=== PATIENT | female | born 1930 | race African-American/Black ===

== ENCOUNTER 2020-07-02 13:08 | Inpatient (IN) | payer MEDICARE ==
[2020-07-02] MEDS ORDERED: hydrALAZINE 20 MG/ML VIAL SLOW IVP PRN (14:06)
[2020-07-02] MEDS ORDERED: Dextrose 5% in Water 1,000 ML IV PRN (14:06)
[2020-07-02] MEDS ORDERED: Morphine 2 MG/ML VIAL SLOW IVP PRN (14:06)
[2020-07-02] MEDS ORDERED: Ondansetron PF 4 MG/2 ML Vial IVP PRN (14:06)
[2020-07-02] MEDS ORDERED: Dextrose 50% Abboject 50 ML SYRINGE SLOW IVP PRN (14:06)
[2020-07-02] MEDS ORDERED: Ondansetron ODT 4 MG TAB PO PRN (14:06)
[2020-07-02] MEDS ORDERED: traMADol HCl 50 MG TAB PO PRN (14:13)
[2020-07-02] MEDS ORDERED: Cepastat Lozenges 1 LOZ PO PRN (14:13)
[2020-07-02] MEDS ORDERED: hydrALAZINE 20 MG/ML VIAL ONE (14:40)
[2020-07-02] MEDS ORDERED: CEFAZOLIN 2 GM in Premix Bag 1 BAG IVPB SCH (15:00)
[2020-07-02 15:50] LABS: SARS-CoV-2 NAA Rapid Test Not Detected (NotDetected)
[2020-07-02] MEDS ORDERED: Lidocaine 1% PF 5 ML VIAL ONE (16:52)
[2020-07-02] MEDS ORDERED: PROPOFOL 200 MG/20 ML VIAL ONE (16:52)
[2020-07-02] MEDS ORDERED: Ondansetron PF 4 MG/2 ML Vial ONE (16:52)
[2020-07-02] MEDS ORDERED: Dexamethasone 20 MG/5 ML VIAL ONE (16:52)
[2020-07-02] MEDS ORDERED: Promethazine HCl 25 MG/ML VIAL SLOW IVP PRN (17:58)
[2020-07-02] MEDS ORDERED: Promethazine HCl 25 MG/ML VIAL IM PRN (17:58)
[2020-07-02] MEDS ORDERED: Ondansetron HCl/PF 4 MG/2 ML Vial IVP PRN (17:58)
[2020-07-02] MEDS ORDERED: Fentanyl 100 MCG/2 ML VIAL ONE ×2 (18:01→18:24)
[2020-07-02] MEDS: Sodium Chloride 0.9% 1,000 ML IV SCH (19:36)
[2020-07-02] MEDS: Ketorolac Tromethamine 30 MG/ML VIAL IVP SCH ×2 (19:40→23:18)
[2020-07-02] MEDS: Acetaminophen 500 MG TAB PO SCH ×2 (19:40→23:17)
[2020-07-02] MEDS: Ascorbic Acid 500 mg Chewable Tablet PO SCH (19:41)
[2020-07-02] MEDS: Ferrous Sulfate 325 MG TAB PO SCH (19:41)
[2020-07-02] MEDS: traMADol HCl 50 MG TAB PO SCH ×2 (19:41→23:18)
[2020-07-02] MEDS: Famotidine 20 MG TAB PO SCH (19:55)
[2020-07-02] MEDS ORDERED: Sodium Chloride 0.9% 1,000 ML IV SCH (21:00)
[2020-07-02] MEDS: Cyclobenzaprine 10 MG TAB PO PRN (21:14)
[2020-07-02 21:29] VITALS: BMI 24.5
[2020-07-03] MEDS: Sodium Chloride 0.9% 1,000 ML IV SCH ×2 (03:27→17:16)
[2020-07-03] MEDS: Ketorolac Tromethamine 30 MG/ML VIAL IVP SCH ×2 (05:17→12:14)
[2020-07-03] MEDS: Acetaminophen 500 MG TAB PO SCH ×3 (05:18→18:41)
[2020-07-03] MEDS: traMADol HCl 50 MG TAB PO SCH ×3 (05:19→18:42)
[2020-07-03 06:06] LABS: #Lymphocytes 0.7 thou/uL (1.20-3.40); #Monocytes 0.4 thou/uL (0.11-0.59); #Neutrophils 4.5 thou/uL (1.40-6.50); %Basophils 0.8 % (0.0-1.0); %Lymphocytes 11.7 % (21.0-51.0); %Monocytes 7.5 % (0.0-10.0); Mean Corpuscular HGB CONC 29.3 g/dL (32.0-36.0); Mean Corpuscular Hemoglobin 22.4 pg (27.0-31.0); Mean Corpuscular Volume 76.4 fL (78.0-98.0); Mean Platelet Volume 9.1 fL (7.4-10.4); Platelet Count 275 thou/uL (130-400); RBC Distribution Width 17.6 % (11.5-14.5); Red Blood Cell (RBC) Count 3.55 mill/uL (4.20-5.40); White Blood Cell (WBC) Count 5.6 thou/uL (4.8-10.8)
[2020-07-03 06:23] LABS: Anion Gap 14 mmol/L (10-20); BUN (Urea Nitrogen) 19 mg/dL (9.8-20.1); Calc. Creatinine Clearance 45 mL/min (70-130); Calcium 9.1 mg/dL (7.8-10.44); Carbon Dioxide 25 mmol/L (23-31); Chloride 100 mmol/L (98-107); Glucose 141 mg/dL (83-110); Magnesium 1.9 mg/dL (1.6-2.6); Potassium 3.9 mmol/L (3.5-5.1); Sodium 135 mmol/L (136-145)
[2020-07-03] MEDS: Ferrous Sulfate 325 MG TAB PO SCH ×2 (07:58→16:35)
[2020-07-03] MEDS: Ascorbic Acid 500 mg Chewable Tablet PO SCH ×2 (07:58→20:00)
[2020-07-03] MEDS: Famotidine 20 MG TAB PO SCH (07:58)
[2020-07-03] MEDS ORDERED: Ibuprofen 200 MG TAB PO PRN (13:44)
[2020-07-04] MEDS: Acetaminophen 500 MG TAB PO SCH ×4 (00:04→17:07)
[2020-07-04] MEDS: traMADol HCl 50 MG TAB PO SCH ×4 (00:19→17:08)
[2020-07-04 06:00] LABS: Hemoglobin 7.8 g/dL (12.0-16.0); Mean Corpuscular HGB CONC 29.3 g/dL (32.0-36.0); Mean Corpuscular Hemoglobin 22.5 pg (27.0-31.0); Mean Corpuscular Volume 76.8 fL (78.0-98.0); Mean Platelet Volume 8.8 fL (7.4-10.4); Platelet Count 269 thou/uL (130-400); RBC Distribution Width 17.5 % (11.5-14.5); Red Blood Cell (RBC) Count 3.47 mill/uL (4.20-5.40); White Blood Cell (WBC) Count 5.6 thou/uL (4.8-10.8)
[2020-07-04] MEDS: Multivit, Therapeutic 1 TAB PO SCH (08:08)
[2020-07-04] MEDS: Ferrous Sulfate 325 MG TAB PO SCH ×3 (08:08→20:34)
[2020-07-04] MEDS: Ascorbic Acid 500 mg Chewable Tablet PO SCH ×2 (08:08→20:35)
[2020-07-04] MEDS: Aspirin 81 mg Enteric Coated Tablet PO SCH ×2 (08:08→20:34)
[2020-07-05] MEDS: Acetaminophen 500 MG TAB PO SCH ×5 (00:40→22:54)
[2020-07-05] MEDS: traMADol HCl 50 MG TAB PO SCH ×5 (00:40→22:54)
[2020-07-05] MEDS: Multivit, Therapeutic 1 TAB PO SCH (08:09)
[2020-07-05] MEDS: Ferrous Sulfate 325 MG TAB PO SCH ×2 (08:09→20:02)
[2020-07-05] MEDS: Aspirin 81 mg Enteric Coated Tablet PO SCH ×2 (08:09→20:02)
[2020-07-05] MEDS: Ascorbic Acid 500 mg Chewable Tablet PO SCH ×2 (08:09→20:02)
[2020-07-05] MEDS: Cyclobenzaprine 10 MG TAB PO PRN (08:45)
[2020-07-05] MEDS ORDERED: Acetaminophen 500 MG TAB ONE (12:23)
[2020-07-05] MEDS ORDERED: traMADol HCl 50 MG TAB ONE (12:23)
[2020-07-06] MEDS: traMADol HCl 50 MG TAB PO SCH ×4 (05:02→22:45)
[2020-07-06] MEDS: Acetaminophen 500 MG TAB PO SCH ×4 (05:05→22:44)
[2020-07-06 06:00] LABS: #Eosinphils 0.1 thou/uL (0.0-0.7); #Lymphocytes 1.6 thou/uL (1.20-3.40); #Monocytes 0.5 thou/uL (0.11-0.59); #Neutrophils 3.2 thou/uL (1.40-6.50); %Basophils 0.8 % (0.0-1.0); %Eosinophils 2.4 % (0.0-10.0); %Lymphocytes 29.3 % (21.0-51.0); %Monocytes 9.3 % (0.0-10.0); %Neutrophils 58.2 % (42.0-75.0); Hemoglobin 7.5 g/dL (12.0-16.0); Mean Corpuscular HGB CONC 30.3 g/dL (32.0-36.0); Mean Corpuscular Hemoglobin 23.4 pg (27.0-31.0); Mean Corpuscular Volume 77.2 fL (78.0-98.0); Mean Platelet Volume 8.9 fL (7.4-10.4); Platelet Count 263 thou/uL (130-400); RBC Distribution Width 17.7 % (11.5-14.5); Red Blood Cell (RBC) Count 3.22 mill/uL (4.20-5.40); White Blood Cell (WBC) Count 5.6 thou/uL (4.8-10.8)
[2020-07-06] MEDS: Ascorbic Acid 500 mg Chewable Tablet PO SCH ×2 (08:53→20:07)
[2020-07-06] MEDS: Ferrous Sulfate 325 MG TAB PO SCH ×2 (08:53→20:07)
[2020-07-06] MEDS: Aspirin 81 mg Enteric Coated Tablet PO SCH ×2 (08:53→20:07)
[2020-07-06] MEDS: Multivit, Therapeutic 1 TAB PO SCH (08:53)
[2020-07-06] MEDS: Amlodipine 5 MG TAB PO SCH (08:53)
[2020-07-07] MEDS: Acetaminophen 500 MG TAB PO SCH ×2 (05:03→12:06)
[2020-07-07] MEDS: traMADol HCl 50 MG TAB PO SCH ×2 (05:03→12:06)
[2020-07-07 06:58] LABS: #Eosinphils 0.1 thou/uL (0.0-0.7); #Monocytes 0.5 thou/uL (0.11-0.59); #Neutrophils 3.2 thou/uL (1.40-6.50); %Basophils 0.6 % (0.0-1.0); %Eosinophils 2.3 % (0.0-10.0); %Lymphocytes 33.9 % (21.0-51.0); %Monocytes 8.7 % (0.0-10.0); %Neutrophils 54.5 % (42.0-75.0); Hemoglobin 7.7 g/dL (12.0-16.0); Mean Corpuscular HGB CONC 30.3 g/dL (32.0-36.0); Mean Corpuscular Hemoglobin 23.3 pg (27.0-31.0); Mean Corpuscular Volume 77.1 fL (78.0-98.0); Mean Platelet Volume 8.8 fL (7.4-10.4); Platelet Count 291 thou/uL (130-400); RBC Distribution Width 17.9 % (11.5-14.5); Red Blood Cell (RBC) Count 3.28 mill/uL (4.20-5.40); White Blood Cell (WBC) Count 5.9 thou/uL (4.8-10.8)
[2020-07-07] MEDS: Ascorbic Acid 500 mg Chewable Tablet PO SCH (09:18)
[2020-07-07] MEDS: Aspirin 81 mg Enteric Coated Tablet PO SCH (09:18)
[2020-07-07] MEDS: Amlodipine 5 MG TAB PO SCH (09:20)
[2020-07-07] MEDS: Multivit, Therapeutic 1 TAB PO SCH (09:21)
[2020-07-07] MEDS: Ferrous Sulfate 325 MG TAB PO SCH (09:21)
[2020-07-07 12:14] VITALS: BP 159/69; TEMP 98
== END 2020-07-07 14:55 | disposition home health service (06) | DRG 482 ==
LOC: ERS 13:08 → SDC/OP 18:19 → SURG A 19:18
PROVIDERS: ADMIT Surgery; ATTEND Surgery
PROC: 0QS734Z Reposition Left Upper Femur with Internal Fixation Device, Percutaneous Approach (ICD-10-PCS; principal; 2020-07-02)
DX: S72.002A Fracture of unspecified part of neck of left femur, initial encounter for closed fracture (principal); Z20.822 Contact with and (suspected) exposure to COVID-19; I10 Essential (primary) hypertension; D64.9 Anemia, unspecified; S72.012A Unspecified intracapsular fracture of left femur, initial encounter for closed fracture; R63.1 Polydipsia; X50.1XXA Overexertion from prolonged static or awkward postures, initial encounter; Y92.009 Unspecified place in unspecified non-institutional (private) residence as the place of occurrence of the external cause; Z79.899 Other long term (current) drug therapy; Z90.710 Acquired absence of both cervix and uterus
CPT/HCPCS: 0240U; 36415; 71045; 76000; 80048; 83735; 84100; 85025; 85027; 93005; 96374; C1713; C1769; G0390; J0360; J1100; J1885; J2405; J2704; J3010